=== PATIENT | female | born 1990 | race Two or more races ===

== ENCOUNTER 2019-09-21 13:40 | Observation (INO) | payer MEDICAID, OTHER ==
[2019-09-21] MEDS ORDERED: PREN-96 PO (14:36)
== END 2019-09-21 16:20 | disposition home or self-care (01) | DRG 566 ==
LOC: LDRP 13:40
PROVIDERS: ADMIT Obstetrics & Gynecology; ATTEND Obstetrics & Gynecology
DX: O42.912 Preterm premature rupture of membranes, unspecified as to length of time between rupture and onset of labor, second trimester (principal); Z3A.24 24 weeks gestation of pregnancy; Z91.040 Latex allergy status
CPT/HCPCS: 59025; 81002; 84112; G0378; Q0114

== ENCOUNTER 2019-12-26 22:40 | Inpatient (IN) | payer MEDICAID ==
[~2019-12-26] VITALS: Ht 170.2 cm; Wt 94.8 kg
[~2019-12-26 22:40] MED LIST: PREN-96 PO
[2019-12-26] MEDS ORDERED: LACT. RINGERS/OXYTOCIN 20UNITS 1,000 ML IV SCH (23:14)
[2019-12-26] MEDS ORDERED: DERMOPLAST 60ML BOTTLE TOP PRN (23:15)
[2019-12-26] MEDS ORDERED: WITCH HAZEL-GLYCERIN PAD TOP PRN (23:15)
[2019-12-26] MEDS ORDERED: PHISODERM TOP SOLN 240ML BTL TOP PRN (23:15)
[2019-12-26] MEDS ORDERED: LIDOCAINE 2%HCL (LOCAL ANESTH.) INJ 20ML MDV ID ONE (23:15)
[2019-12-26 23:58] LABS: Basophils # (auto) 0 10 ^3/uL (0-0.2); Basophils % (auto) 0.1 % (0.0-2.0); Eosinophils # (auto) 0.1 10 ^3/uL (0-0.8); Eosinophils % (auto) 0.8 % (0.0-7.0); Hematocrit 36.9 % (36.0-46.0); Hemoglobin 12.7 g/dL (12.2-16.2); Lymphocytes # (auto) 3.2 10 ^3/uL (0.4-5.4); Lymphocytes % (auto) 21.5 % (10.0-50.0); Mean Corpuscular Hemoglobin 29.5 pg (28.0-32.0); Mean Corpuscular Hgb Conc. 34.5 g/dL (32.0-36.0); Mean Corpuscular Volume 85.7 fL (80.0-100.0); Monocytes # (auto) 1.3 10 ^3/uL (0-1.3); Monocytes % (auto) 8.9 % (0.0-12.0); Neutrophils # (auto) 10.1 10 ^3/uL (1.6-8.6); Neutrophils % (auto) 68.7 % (37.0-80.0); Nucleated Red Blood Cells % 0.2 %; Platelet Count (auto) 229 10^3/uL (140-450); Red Blood Cells 4.31 10^6/uL (4.0-5.20); White Blood Cell 14.7 10^3/uL (4.4-10.8)
[2019-12-27 00:15] LABS: Urine Bacteria FEW /hpf (None Seen); Urine Blood Negative /uL (Negative); Urine Specific Gravity 1.005 (1.001-1.035); Urine WBC 6 /hpf (0 - 5)
[2019-12-27 00:17] LABS: Alcohol, Urine < 3.0 mg/dL (0-10); Amphetamine Screen, Urine NEGATIVE (NEGATIVE); Barbiturate Scree,Urine NEGATIVE (NEGATIVE); Benzodiazephine Screen, Urine NEGATIVE (NEGATIVE); Cannabinoid Screen, Urine NEGATIVE (NEGATIVE); Cocaine Screen, Urine NEGATIVE (NEGATIVE); Opiate Scree,Urine NEGATIVE (NEGATIVE); Phencyclidine Screen, Urine NEGATIVE (NEGATIVE)
[2019-12-27 00:18] LABS: Albumin 2.7 g/dL (3.4-5.0); BUN/Creatinine Ratio 12.5; Calcium 8.9 mg/dL (8.5-10.1); INR 0.95 (0.9-1.15); Partial Thromboplastin Time 24.9 sec (23.0-31.2); Potassium 3.6 mmol/L (3.5-5.1)
[2019-12-27 00:21] LABS: Bilirubin, Total 0.3 mg/dL (0.2-1.0); Total Protein 6.6 g/dL (6.4-8.2)
[2019-12-27] MEDS: CLINDAMYCIN 900MG IV 50 ML IV SCH ×2 (01:00→08:28)
[2019-12-27] MEDS ORDERED: LACT. RINGERS/OXYTOCIN 20UNITS 1,000 ML IV SCH (01:35)
[2019-12-27] MEDS ORDERED: TERBUTALINE SULFATE 1 MG/ML 1ML VIAL SC ONE (01:45)
[2019-12-27] MEDS: LACTATED RINGER'S 1,000 ML IV SCH ×3 (02:49→15:14)
[2019-12-27] MEDS ORDERED: PROMETHAZINE HCL 25 MG/ML 1ML IV PRN (05:00)
[2019-12-27] MEDS ORDERED: BUTORPHANOL TARTRATE 2 MG/1 ML VIAL IM ONE (05:00)
[2019-12-27] MEDS ORDERED: NALOXONE HCL 0.4 MG/ML VIAL IV ONE (05:15)
[2019-12-27] MEDS ORDERED: ePHEDrine SULFATE 50 MG/ML AMP IV ONE (05:15)
[2019-12-27] MEDS ORDERED: LIDOCAINE HCL 2 %PF INJ 10ML AMP IJ ONE (05:15)
[2019-12-27] MEDS ORDERED: fentaNYL CITRATE 100 MCG/2 ML VL IV ONE (05:15)
[2019-12-27] MEDS ORDERED: METHYLERGONOVINE MALEATE 0.2 MG/ML AMP IM PRN (08:15)
[2019-12-27] MEDS ORDERED: BUTORPHANOL TARTRATE 2 MG/1 ML VIAL IV ONE (08:30)
[2019-12-27] MEDS ORDERED: LACT. RINGERS/OXYTOCIN 20UNITS 1,000 ML IV ONE (09:21)
[2019-12-27] MEDS ORDERED: DOCUSATE CALCIUM 240 MG CAP PO SCH (10:00)
[2019-12-27] MEDS: ACETAMINOPHEN 325 MG TAB PO PRN ×2 (10:15→17:00)
[2019-12-27 10:53] VITALS: BP 110/71
[2019-12-27] MEDS: ROPIVACAINE HCL 100 ML EPI SCH ×3 (14:45→16:59)
[2019-12-27 15:00] VITALS: BP 114/65
[2019-12-27 19:00] VITALS: BP 108/57
[2019-12-27] MEDS: IBUPROFEN 600 MG TAB PO PRN (20:54)
[2019-12-27] MEDS ORDERED: TETANUS-DIPTH-ACEL PERTUSSIS 0.5ML SYR Tdap IM ONE (22:45)
[2019-12-27 23:00] VITALS: BP 108/62
[2019-12-28 03:00] VITALS: BP 103/68
[2019-12-28] MEDS: IBUPROFEN 600 MG TAB PO PRN ×2 (03:25→07:13)
[2019-12-28 05:10] LABS: RPR Non Reactive (Non Reactive)
[2019-12-28 07:18] VITALS: BP 106/58
== END 2019-12-28 10:40 | disposition home or self-care (01) | DRG 560 ==
LOC: LDRP 22:40 → OBSVTOIN 22:40 → LDRP 23:34
PROVIDERS: ADMIT Obstetrics & Gynecology; ATTEND Obstetrics & Gynecology
PROC: 10E0XZZ Delivery of Products of Conception, External Approach (ICD-10-PCS; principal; 2019-12-27)
PROC: 0W8NXZZ Division of Female Perineum, External Approach (ICD-10-PCS; 2019-12-27)
PROC: 0KQM0ZZ Repair Perineum Muscle, Open Approach (ICD-10-PCS; 2019-12-27)
PROC: 3E0R3BZ Introduction of Anesthetic Agent into Spinal Canal, Percutaneous Approach (ICD-10-PCS; 2019-12-27)
PROC: 00HU33Z Insertion of Infusion Device into Spinal Canal, Percutaneous Approach (ICD-10-PCS; 2019-12-27)
DX: O42.92 Full-term premature rupture of membranes, unspecified as to length of time between rupture and onset of labor (principal); O69.81X0 Labor and delivery complicated by cord around neck, without compression, not applicable or unspecified; O76 Abnormality in fetal heart rate and rhythm complicating labor and delivery; O99.820 Streptococcus B carrier state complicating pregnancy; O70.1 Second degree perineal laceration during delivery; Z37.0 Single live birth; Z88.0 Allergy status to penicillin; Z20.828 Contact with and (suspected) exposure to other viral communicable diseases; Z3A.38 38 weeks gestation of pregnancy
CPT/HCPCS: 36415; 59025; 59409; 62282; 80053; 80307; 81001; 81002; 84112; 85025; 85610; 85730; 86592; 86850; 86900; 86901; 87426; 90715; 96360; 96361; 96365; 96372; G0378; J2590; J3490